=== PATIENT | male | born 1965 | race Two or more races ===

== ENCOUNTER 2025-01-27 18:34 | Emergency (ER) | payer OTHER ==
[~2025-01-27] VITALS: Ht 177.8 cm; Wt 70.3 kg
[2025-01-27 18:44] VITALS: BP 119/85; O2SAT 99
[2025-01-27] MEDS ORDERED: DICLOFENAC SODI75 MG PO (20:54)
[2025-01-27] MEDS ORDERED: BACLOFEN10 MG PO (20:54)
[2025-01-27] MEDS ORDERED: KETOROLAC TROMETHAMINE 60 MG VIAL IM ONE (21:00)
[2025-01-27] MEDS ORDERED: ORPHENADRINE CITRATE 30 MG/ML AMPUL IM ONE (21:00)
[2025-01-27] MEDS ORDERED: DEXAMETHASONE SODIUM PHOSPHATE 4 MG/ML VIAL IM ONE (21:00)
== END 2025-01-27 21:13 | disposition home or self-care (01) ==
LOC: ER 18:34
DX: M54.50 Low back pain, unspecified (principal); M62.830 Muscle spasm of back